=== PATIENT | female | born 1960 | race African-American/Black ===

== ENCOUNTER 2017-07-05 00:57 | Inpatient (IN) | payer OTHER ==
[~2017-07-05] VITALS: Ht 157.5 cm; Wt 97.2 kg
[2017-07-05] VITALS (20 sets, daily range): BP systolic 92–114; BP diastolic 55–73
[~2017-07-05 00:57] MED LIST: ASPIRIN CHEW81 MG PO; ASPIRIN81 M1 PO; CEFTRIAXON2 GM/50 ML IV; CLINDAGEL40 ML TOP; CRESTOR10 MG PO; FERROUS SULFAT325 MG PO; LIPITOR80 MG PO; MINOCYCLINE HC100 M1 PO; MINOCYCLINE TOP; MUPIROCIN22 GM TOP; NORCO 7.5-3251 EACH PO; PLAVIX75 MG PO; TRULICITY INJ; VANCOMYCIN1 GM/250 M IV; Z.0.GLIPIZIDE10 MG PO; Z.0.LIPITOR10 MG PO; Z.0.LISINOPRIL5 MG PO; Z.0.METFORMIN HCL100 PO; Z.0.TEMAZEPAM15 MG PO; Z.0.VICTOZA 3-0.6 MG SQ; Z.0.XANAX0.25 MG PO
[2017-07-05] MEDS ORDERED: ASPIRIN 81 MG CHEW TAB PO ONE ×2 (01:30→03:15)
[2017-07-05 02:05] LABS: BASOPHILS # (AUTO) 0.1 (0.0-0.1); BASOPHILS % 0.4 % (0.0-1.0); HEMATOCRIT 30.7 % (34.2-44.1); HEMOGLOBIN 9.1 g/dL (12.0-16.0); LYMPHOCYTES # (AUTO) 0.8 (1.0-3.2); LYMPHOCYTES % 6.2 % (18.0-39.1); MEAN CORPUSCULAR HEMOGLOBIN 21.6 pg (28-32); MEAN CORPUSCULAR HGB CONC 29.6 g/dL (31-35); MEAN CORPUSCULAR VOLUME 72.9 fL (81-99); MONOCYTES # (AUTO) 1.2 (0.2-0.8); MONOCYTES % 8.9 % (4.4-11.3); NEUTROPHILS # (AUTO) 11.2 (2.1-6.9); NEUTROPHILS % 83.9 % (38.7-80.0); PLATELET COUNT 402 x10e3/uL (140-360); RED BLOOD COUNT 4.21 x10e6/uL (3.6-5.1); RED CELL DISTRIBUTION WIDTH 17.2 % (11.7-14.4)
[2017-07-05 02:17] LABS: INR 1.16; PROTHROMBIN TIME 15.4 seconds (11.9-14.5)
--- NOTE | 2017-07-05 02:39 | Diagnostic Imaging Report ---
EXAMINATION: Head CT HISTORY: Weakness for several days, slurred speech for 2 days. Evaluate for stroke. COMPARISON: None. TECHNIQUE: Multidetector axial images were obtained without contrast from the foramen magnum to the vertex . The images were reconstructed using brain and bone algorithms. Thin section brain images were reformatted into coronal and sagittal planes. Intravenous contrast: None. Motion/streaking artifact limits the evaluation of the skull base and posterior cranial fossa. FINDINGS: Parenchyma: 1. Prominent hypodensity in the right ventral medulla (pyramidal tract), may represent an artifact versus an age indeterminate infarct. 2. Few scatter White matter hypodensities, most likely nonspecific chronic microvascular ischemic changes. 3. No mass or hemorrhage. No CT evidence of acute territorial vascular insult. Extra-axial spaces:No abnormal density. No extra-axial fluid collections Brain volume: Normal for age. Ventricles: No hydrocephalus or displacement. Arteries: No density suggestive of thrombus. Dural sinuses: No abnormal density. Extra-axial spaces: No abnormal density. Foramen magnum: No mass, Chiari malformation, or basilar invagination. Sella: No obvious mass. Paranasal/mastoid sinuses: Imaged portions unremarkable. Skull/Scalp: No lytic or blastic lesions. No fractures. IMPRESSION: 1. Questionable hypodensity in the right ventral medulla (pyramidal tract) may represent an artifact versus ischemic infarct. If clinical concern remains consider brain MRI for further evaluation. 2. No acute intracranial hemorrhage. 3. Mild chronic microvascular ischemic changes. Signed by: Dr. Radha Miller M.D. on 07/05/2017 2:35 AM
[2017-07-05 02:50] LABS: MAGNESIUM 1.2 MG/DL (1.3-2.1)
[2017-07-05 02:58] LABS: ALANINE AMINOTRANSFERASE 38 IU/L (0-55); ALBUMIN 2.2 g/dL (3.5-5.0); ALBUMIN/GLOBULIN RATIO 0.4 (0.8-2.0); ALKALINE PHOSPHATASE 76 IU/L (40-150); BLOOD UREA NITROGEN 9 mg/dL (7-26); BUN/CREATININE RATIO 15 (6-25); CALCIUM 9.4 mg/dL (8.4-10.2); CHLORIDE 103 mmol/L (98-107); CREATINE KINASE 107 IU/L (29-168); CREATININE, SERUM 0.61 mg/dL (0.57-1.11); EST GLOMERULAR FILTRATION RATE > 60 ML/MIN (60-); POTASSIUM 4.2 mmol/L (3.5-5.1); SODIUM 134 mmol/L (136-145)
--- NOTE | 2017-07-05 03:02 | Diagnostic Imaging Report ---
EXAM: CHEST SINGLE (PORTABLE), AP 1 view DATE: 07/05/2017 1:35 AM Time stamp on exam: 2248 hours INDICATION: Weakness, slurred speech COMPARISON: AP view of the chest July 07, 2016 FINDINGS: LINES/TUBES: None LUNGS: No consolidations or edema. PLEURA: No effusions or pneumothorax. HEART AND MEDIASTINUM: Normal size and contour. BONES AND SOFT TISSUES: No acute findings. IMPRESSION: No acute thoracic abnormality. Signed by: Dr. Shantel Streeter M.D. on 07/05/2017 2:58 AM
[2017-07-05] MEDS ORDERED: SODIUM CHLORIDE 0.9% 1000ML 1,000 ML IV STA (03:08)
[2017-07-05 03:17] LABS: GLUCOSE 46 mg/dL (74-118)
[2017-07-05] MEDS ORDERED: DEXTROSE 50% SYRINGE 50 ML IV ONE (03:22)
[2017-07-05] MEDS ORDERED: DEXTROSE 50% SYRINGE 50 ML IV STA (03:35)
[2017-07-05 03:40] LABS: ANION GAP 17.2 mmol/L (8-16); CARBON DIOXIDE 18 mmol/L (22-29); THYROID STIMULATING HORMONE 0.54 uIU/mL (0.350-4.940)
[2017-07-05] MEDS ORDERED: DEXTROSE 10% 1,000 ML IV SCH (03:45)
[2017-07-05] MEDS ORDERED: MAGNESIUM SULFATE 2GM/50ML 50 ML IV ONE (03:45)
[2017-07-05] MEDS: PIPER-TAZ 3.375 GM 50 ML IV SCH ×4 (04:37→17:47)
[2017-07-05 04:40] LABS: BILIRUBIN,URINE NEGATIVE (NEGATIVE); CLARITY,URINE CLEAR (CLEAR); COLOR,URINE YELLOW (YELLOW); KETONES,URINE NEGATIVE (NEGATIVE); LEUKOCYTE ESTERASE ,URINE NEGATIVE (NEGATIVE); NITRITE,URINE NEGATIVE (NEGATIVE); URINE UROBILINOGEN 0.2 mg/dL (0.2 - 1)
[2017-07-05 04:41] LABS: PROTEIN,URINE DIPSTICK 1+ (NEGATIVE)
[2017-07-05 05:11] LABS: AMORPHOUS SEDIMENT,URINE MODERATE (FEW); BACTERIA,URINE FEW /HPF; EPITHELIAL CELLS,URINE FEW /LPF; WBC,URINE (MAN) 0-5 /HPF (0-5)
[2017-07-05] MEDS: VANCOMYCIN 1GM/NS 250 ML 250 ML IV SCH ×3 (05:30→21:13)
[2017-07-05 05:46] LABS: ABG PH 7.45 (7.31-7.41)
[2017-07-05] MEDS ORDERED: DEXTROSE 50% SYRINGE 50 ML IV PRN (06:45)
[2017-07-05] MEDS ORDERED: ONDANSETRON HCL INJ 2 MG/ML VIAL IV PRN (06:45)
[2017-07-05] MEDS: ASPIRIN 325 MG TAB EC PO SCH (07:55)
[2017-07-05] MEDS ORDERED: ACETAMINOPHEN 325 MG TAB PO ONE (08:00)
[2017-07-05] MEDS: INSULIN REGULAR, HUMAN 100 UNIT/1 ML 3ML VIAL SQ SCH ×4 (08:25→20:54)
[2017-07-05] MEDS ORDERED: CYMBALTA20 MG PO (09:39)
[2017-07-05] MEDS ORDERED: HUMERA (09:39)
[2017-07-05] MEDS ORDERED: TYLENOL WITH C1 EAC1 PO (09:39)
[2017-07-05] MEDS ORDERED: PANTOPRAZOLE SO40 MG PO (09:39)
[2017-07-05 11:06] LABS: CREATINE KINASE MB 1.7 ng/mL (0.00-5.00)
--- NOTE | 2017-07-05 15:27 | Diagnostic Imaging Report ---
History: Syncope Comparison studies: None Technique: Sagittal T2; axial DWI, FLAIR, MPGR, T1, Coronal FLAIR. Intravenous contrast: None Findings: Scalp: Normal in signal . No masses . Bone marrow: Normal in signal intensity. Extra-axial: No masses or fluid collections. Brain sulci: Appropriate for age. Ventricles: Normal in size . No hydrocephalus . Parenchyma: A few punctate T2 FLAIR hyperintense foci in the supratentorial white matter at the vertex are nonspecific small vessel ischemic changes. No masses, hemorrhage, acute or chronic cortical ischemic insults. Suprasellar region: No abnormalities. Craniocervical junction: No abnormalities. Patent foramen magnum. No Chiari one malformation. Vessels: Normal flow-voids in the arteries and sinuses. IMPRESSION: 1. Minimal supratentorial white matter is normal ischemic changes. 2. Otherwise, no abnormalities. 3. Vague hypodensity in the right ventral medulla, described on the CT, was an artifact. Signed by: Dr. Bharat Zafar M.D. on 07/05/2017 3:23 PM
--- NOTE | 2017-07-05 15:32 | Diagnostic Imaging Report ---
History: Syncope Comparison studies: None Technique: Sagittal T1, T2 and IR, axial T2 and axial gradient echo Intravenous contrast: None Findings: Airway: Patent. Alignment: Normal lordosis. No scoliosis. Cervicomedullary junction: No abnormalities. Patent foramen magnum. Soft tissues: No T2 hyperintense inflammatory changes. Spinal cord: Normal in size and signal from the foramen magnum through T1. Vertebrae: Normal in height and signal intensity. No fractures, infection or neoplasm. Degenerative changes: C2-C3: No abnormalities. C3-C4: Mildly degenerated disc. Mild spinal canal stenosis due to a disc osteophyte complex. Mild left foraminal stenosis due to uncoarthrosis. Patent right foramen. No disc herniation. C4-C5: Mildly degenerated disc. Mild spinal canal stenosis due to disc osteophyte complex. Foraminal stenosis, moderate right, mild left is due to facet and uncovertebral arthrosis. No disc herniation. C5-C6: Mildly degenerated disc. Mild left foraminal stenosis due to uncovertebral arthrosis. Patent spinal canal and right foramen. No disc herniation. C6-C7: No abnormalities. C7-T1: No abnormalities. IMPRESSION: 1. Mildly degenerated discs from C3 to C6. 2. Mild spinal canal stenosis at C3-4 and to a lesser extent at C4-5 due to disc osteophyte complexes. 3. Foraminal stenosis, also from C3 to C6, is worse on the right at C4-5. 4. No disc herniations Signed by: Dr. Bharat Zafar M.D. on 07/05/2017 3:29 PM
[2017-07-05] MEDS ORDERED: ACETAMINOPHEN 325 MG TAB PO PRN (16:30)
[2017-07-05 17:58] LABS: CREATINE KINASE MB 1.5 ng/mL (0.00-5.00)
[2017-07-05] MEDS ORDERED: DIPHENHYDRAMINE HCL 25 MG CAP PO PRN (21:00)
[2017-07-06] VITALS (24 sets, daily range): BP systolic 90–132; BP diastolic 59–96
[2017-07-06] MEDS: PIPER-TAZ 3.375 GM 50 ML IV SCH ×4 (00:13→20:00)
[2017-07-06 06:18] LABS: BASOPHILS # (AUTO) 0.1 (0.0-0.1); BASOPHILS % 0.6 % (0.0-1.0); EOSINOPHILS % 0.2 % (0.0-6.0); HEMATOCRIT 25.3 % (34.2-44.1); LYMPHOCYTES # (AUTO) 1.1 (1.0-3.2); LYMPHOCYTES % 13.3 % (18.0-39.1); MEAN CORPUSCULAR HEMOGLOBIN 21.8 pg (28-32); MEAN CORPUSCULAR HGB CONC 30.4 g/dL (31-35); MEAN CORPUSCULAR VOLUME 71.7 fL (81-99); MONOCYTES # (AUTO) 1.1 (0.2-0.8); MONOCYTES % 13.2 % (4.4-11.3); PLATELET COUNT 389 x10e3/uL (140-360); RED BLOOD COUNT 3.53 x10e6/uL (3.6-5.1)
[2017-07-06 06:22] LABS: HEMOGLOBIN 7.7 g/dL (12.0-16.0)
[2017-07-06 06:32] LABS: ALANINE AMINOTRANSFERASE 38 IU/L (0-55); ALBUMIN 1.9 g/dL (3.5-5.0); ALBUMIN/GLOBULIN RATIO 0.4 (0.8-2.0); ALKALINE PHOSPHATASE 66 IU/L (40-150); ANION GAP 14.1 mmol/L (8-16); BLOOD UREA NITROGEN 7 mg/dL (7-26); BUN/CREATININE RATIO 11 (6-25); CALCIUM 8.9 mg/dL (8.4-10.2); CARBON DIOXIDE 19 mmol/L (22-29); CHLORIDE 107 mmol/L (98-107); CREATININE, SERUM 0.65 mg/dL (0.57-1.11); EST GLOMERULAR FILTRATION RATE > 60 ML/MIN (60-); GLUCOSE 194 mg/dL (74-118); MAGNESIUM 1.3 MG/DL (1.3-2.1); POTASSIUM 4.1 mmol/L (3.5-5.1); SODIUM 136 mmol/L (136-145)
[2017-07-06] MEDS: INSULIN REGULAR, HUMAN 100 UNIT/1 ML 3ML VIAL SQ SCH ×4 (07:30→21:45)
[2017-07-06] MEDS: VANCOMYCIN 1GM/NS 250 ML 250 ML IV SCH ×2 (09:02→21:44)
[2017-07-06] MEDS: ASPIRIN 325 MG TAB EC PO SCH (09:03)
[2017-07-06 09:20] LABS: HEMATOCRIT 26.8 % (34.2-44.1); HEMOGLOBIN 8.2 g/dL (12.0-16.0)
[2017-07-06 09:43] LABS: FERRITIN 6501.57 ng/mL (4.63-204.00)
[2017-07-06] MEDS: GLIPIZIDE 5 MG TAB PO SCH (12:04)
[2017-07-06] MEDS: LISINOPRIL 20 MG TAB PO SCH (12:04)
[2017-07-06] MEDS: CLOPIDOGREL BISULFATE 75 MG TAB PO SCH (12:05)
--- NOTE | 2017-07-06 12:54 | Diagnostic Imaging Report ---
PROCEDURE: A single AP view of the chest. COMPARISON: 07/05/2017 INDICATIONS: PICC LINE PLACEMENT FINDINGS: Lines/tubes: Right upper extremity PICC line has its tip in the low SVC. Lungs: The lungs are well inflated and clear. There is no evidence of pneumonia or pulmonary edema. Pleura: There is no pleural effusion or pneumothorax. Heart and mediastinum: The heart and the mediastinum are unremarkable. Bones: No acute bony abnormality. Surgical clips in the bilateral axillary soft tissues. IMPRESSION: Right upper extremity PICC line has its tip in the low SVC. Dictated by: Alhaji Nava M.D. on 07/06/2017 at 13:02 Electronically approved by: Alhaji Nava M.D. on 07/06/2017 at 13:02
--- NOTE | 2017-07-06 13:36 | Consultation ---
DATE OF CONSULTATION: July 05, 2017 REASON FOR CONSULTATION: Fever. HISTORY OF PRESENT ILLNESS: This is a 57-year-old female who has history of obesity, anemia, diabetes, and hidradenitis. The patient apparently was referred to dermatology [facility] and she was started recently a month ago on Humira. The patient has also been on minocycline, aspirin, metformin, glipizide, lisinopril, Plavix, and Lipitor. She has been on clindamycin gel. She has been on mupirocin gel. She has been on tetracycline. She is coming here because she passed out. She was not feeling well at all. When she first came here, patient was evaluated in the emergency room. She was admitted to the intensive care unit. When I saw her, she started to feel better, has no other complaints. At the present time, the patient has underlying history of obesity, diabetes mellitus, hypertension, history of stroke before, hidradenitis suppurativa, and started on Humira about 4 weeks ago. PAST MEDICAL HISTORY: Cholecystectomy, hysterectomy. ALLERGIES: NKA. SOCIAL HISTORY: There is no smoking, drug abuse, alcohol use. FAMILY HISTORY: Hypertension. REVIEW OF SYSTEMS: HEENT: When I saw her, there is no headache, visual changes, or hearing changes. GI: There is no nausea, no vomiting, no diarrhea. CARDIAC: There is no arrhythmia. NEUROLOGIC: No seizure activity. SKIN: There is no rash. When she first came, the patient was having weakness, paresthesia, not feeling well, and impaired speech, came to the emergency room where she was evaluated. Neurology was consulted. Infectious disease was consulted to make recommendation with regards to antibiotic. The patient still admits that she does have still draining lesions coming in her thigh. LABORATORY DATA: Reviewed. Her white count on admission 13.3, hemoglobin of 9. Her sodium 136, potassium 4.1, creatinine of 0.65. Her blood cultures and urine cultures still pending. PHYSICAL EXAMINATION: GENERAL: She is currently alert, oriented, does not seem to be in acute distress. VITAL SIGNS: She has been running fever of 101.3. HEENT: She is not icteric. NECK: Supple. CHEST: Clear bilateral. COR: No murmurs. ABDOMEN: Soft. IMPRESSION: Fever, concern about infection, sepsis. Patient has been on immunosuppressive, Humira. She does have a couple of drainage spots from her skin. Agree with vancomycin. Agree with Zosyn. Await blood cultures. Recheck CBC, recheck chem panel. We will follow with you. Job#: [id number] VAS
[2017-07-06] MEDS: ACETAMINOPHEN/CODEINE 300MG - 30MG TAB PO PRN (15:16)
--- NOTE | 2017-07-06 15:16 | History and Physical ---
DATE OF : 1960 REASON FOR ADMISSION: This is a 57-year-old female with weakness. HISTORY OF PRESENTING ILLNESS: This is Ms. iBbi Lee with a history of CVA in the past, was in usual state of health until about a day prior to [place]. The patient started to have some weakness in lower extremities described as generalized and upper extremity on the left side. Patient was slurring her speech and the weakness was profound. Thus, the patient came into the emergency room and was admitted in the ICU for possible TIA versus CVA. PAST MEDICAL HISTORY: History of hypertension, history of stroke, history of depression, history of hidradenitis suppurativa, history of diabetes mellitus, and history of reflux esophagitis. MEDICATIONS: She takes at home are: 1. Acetaminophen with codeine q.6 hours. 2. Aspirin 81 mg. 3. Plavix 75 mg. 4. Atorvastatin 80 mg. 5. Duloxetine 20 mg. 6. Glipizide 10 mg twice a day. 7. Lisinopril 5 mg twice a day. 8. Pantoprazole 40 mg twice a day. 9. Trulicity once a week. 10. Humira once a week too. SOCIAL HISTORY: No ETOH. No IV drug abuse. History of smoking in the past, currently nonsmoker. REVIEW OF SYSTEMS: Negative for chest pain. Negative for shortness of breath. No nausea, vomiting, or diarrhea. No constipation. No rectal bleeding. No hematochezia. No hematemesis either. SURGICAL HISTORY: History of right hip replacement and also history of finger surgeries and need for incision and drainage. Patient also has multiple incision and drainage for hidradenitis suppurativa also. PHYSICAL EXAMINATION: GENERAL: Patient is alert and oriented x3, in no acute distress at this time, obese. HEENT: Normocephalic, atraumatic. Pupils are reactive to light and accommodation. CVS: S1 and S2, normal regular rhythm. ABDOMEN: Nontender, nondistended. EXTREMITIES: No clubbing, no cyanosis, no edema. NEUROLOGIC: All muscle groups with good strength 5/5; hyperreflexic slightly on the right lower and right upper extremities, otherwise normal. LABORATORY VALUES: Initial white count was 13.3, hemoglobin was 9.1, hematocrit of 30.7, neutrophil was 11.2, repeat hemoglobin of 7.7 and 8.2. Chemistries; sodium 136, potassium was 4.1, BUN was 14.7, creatinine was 0.65. Iron panel was done. Iron was 14, TIBC 116, percent saturation was 12, ferritin was elevated at 6501. ALT was 43, albumin was 1.9, globulin was 5.1, ratio of 0.4. Serology influenza was negative with the patient also did report fever when she came in. ASSESSMENT: Weakness. MRI brain was negative for any stroke. Cervical MRI did show C5-C6 diskopathy, foraminal stenosis with DJD. Chest x-ray showed no acute thoracic abnormalities. Brain CT showed some artifact, which was cleared by MRI. Plan is to keep the patient in for the fever. The patient's influenza has been negative. She has been started on antibiotics, has been started on vancomycin and Zosyn. I will continue the same. We will restart her on home medications. Further recommendations on clinical course. A PICC line also has been started for fever. We will stop the Zosyn and vancomycin. Possible reason for the fever could be the hidradenitis suppurativa. Neurology is on-call for consult, they have not seen, but Dr. Mejia will be assessing her shortly. We will keep her in the ICU today. Job#: [id number] CAROLINE
[2017-07-06] MEDS: CLOTRIMAZOLE/BETAMETHASONE 45 GM CR TP SCH (20:00)
[2017-07-06] MEDS: DULOXETINE HCL 20 MG DELAYED RELEASE PO SCH (21:44)
[2017-07-07] VITALS (22 sets, daily range): BP systolic 86–137; BP diastolic 51–98
[2017-07-07] MEDS: PIPER-TAZ 3.375 GM 50 ML IV SCH ×4 (00:45→16:29)
[2017-07-07 06:03] LABS: BASOPHILS % 0.5 % (0.0-1.0); EOSINOPHILS # (AUTO) 0.1 (0.0-0.4); EOSINOPHILS % 1.2 % (0.0-6.0); HEMATOCRIT 23.8 % (34.2-44.1); LYMPHOCYTES # (AUTO) 1.4 (1.0-3.2); LYMPHOCYTES % 21.7 % (18.0-39.1); MEAN CORPUSCULAR HEMOGLOBIN 21.6 pg (28-32); MEAN CORPUSCULAR HGB CONC 30.3 g/dL (31-35); MEAN CORPUSCULAR VOLUME 71.5 fL (81-99); MONOCYTES # (AUTO) 0.9 (0.2-0.8); MONOCYTES % 13.3 % (4.4-11.3); NEUTROPHILS % 62.2 % (38.7-80.0); PLATELET COUNT 398 x10e3/uL (140-360); RED BLOOD COUNT 3.33 x10e6/uL (3.6-5.1); RED CELL DISTRIBUTION WIDTH 17.2 % (11.7-14.4)
[2017-07-07 06:37] LABS: HEMOGLOBIN 7.2 g/dL (12.0-16.0)
[2017-07-07] MEDS ORDERED: FUROSEMIDE INJ 10 MG/ML 2 ML VIAL IV ONE (07:00)
[2017-07-07] MEDS ORDERED: SODIUM CHLORIDE 0.9% 250ML 250 ML IV ONE (07:00)
--- NOTE | 2017-07-07 07:18 | Diagnostic Imaging Report ---
PROCEDURE:CHEST SINGLE (PORTABLE) TECHNIQUE:Portable AP chest INDICATION:Cough COMPARISON:Patients [facility], DX, CHEST XRAY LINE PLACEMENT, 07/06/2017, 10:23. FINDINGS: Right PICC terminating in the upper SVC. Trace bibasilar airspace opacities. Lungs are otherwise clear. No pleural effusions. Cardiac size and mediastinal contour are normal for technique. Intact skeleton. CONCLUSION: Bibasilar subsegmental atelectasis. Otherwise, no acute abnormality or interval change from July 06. Dictated by: Jose Francisco Brown M.D. on 07/07/2017 at 7:26 Electronically approved by: Jose Francisco Brown M.D. on 07/07/2017 at 7:26
[2017-07-07] MEDS: INSULIN REGULAR, HUMAN 100 UNIT/1 ML 3ML VIAL SQ SCH ×4 (07:30→21:00)
[2017-07-07] MEDS ORDERED: PANTOPRAZOLE SOD 40 MG TABEC PO SCH (07:30)
[2017-07-07] MEDS: PANTOPRAZOLE SOD 40 MG TABEC PO SCH (08:06)
[2017-07-07] MEDS: GLIPIZIDE 5 MG TAB PO SCH ×2 (08:06→16:45)
[2017-07-07] MEDS: CLOTRIMAZOLE/BETAMETHASONE 45 GM CR TP SCH ×2 (08:07→16:45)
[2017-07-07] MEDS: VANCOMYCIN 1GM/NS 250 ML 250 ML IV SCH ×2 (08:07→21:51)
[2017-07-07] MEDS: LISINOPRIL 20 MG TAB PO SCH ×2 (08:07→16:45)
[2017-07-07] MEDS: ASPIRIN 81 MG CHEW TAB PO SCH (08:07)
[2017-07-07] MEDS: IRON SUCROSE 200 MG in SODIUM CHLORIDE 0.9% 100 ML 100 ML IV SCH (09:39)
[2017-07-07] MEDS ORDERED: SODIUM CHLORIDE 0.9% 250ML 250 ML ONE ×2 (10:45→17:57)
[2017-07-07] MEDS ORDERED: FUROSEMIDE INJ 10 MG/ML 4 ML VIAL ONE (14:13)
[2017-07-07] MEDS: ACETAMINOPHEN/CODEINE 300MG - 30MG TAB PO PRN (14:27)
[2017-07-07] MEDS ORDERED: SODIUM CHLORIDE 0.9% 50ML 50 ML ONE (16:22)
[2017-07-07] MEDS: DULOXETINE HCL 20 MG DELAYED RELEASE PO SCH (21:51)
[2017-07-07] MEDS: ATORVASTATIN 40 MG TAB PO SCH (21:51)
[2017-07-08] VITALS: BP 110/72
[2017-07-08] MEDS: PIPER-TAZ 3.375 GM 50 ML IV SCH ×2 (01:53→06:18)
[2017-07-08 04:00] VITALS: BP 113/69
[2017-07-08] MEDS: INSULIN REGULAR, HUMAN 100 UNIT/1 ML 3ML VIAL SQ SCH ×4 (07:30→21:58)
[2017-07-08 07:37] LABS: BASOPHILS # (AUTO) 0.1 (0.0-0.1); BASOPHILS % 0.7 % (0.0-1.0); EOSINOPHILS # (AUTO) 0.1 (0.0-0.4); HEMATOCRIT 28.3 % (34.2-44.1); LYMPHOCYTES # (AUTO) 1.7 (1.0-3.2); MEAN CORPUSCULAR HEMOGLOBIN 23.2 pg (28-32); MEAN CORPUSCULAR HGB CONC 31.8 g/dL (31-35); MEAN CORPUSCULAR VOLUME 72.9 fL (81-99); MONOCYTES # (AUTO) 0.8 (0.2-0.8); MONOCYTES % 11.5 % (4.4-11.3); NEUTROPHILS # (AUTO) 4.3 (2.1-6.9); NEUTROPHILS % 60.7 % (38.7-80.0); PLATELET COUNT 400 x10e3/uL (140-360); RED BLOOD COUNT 3.88 x10e6/uL (3.6-5.1); RED CELL DISTRIBUTION WIDTH 17.4 % (11.7-14.4)
[2017-07-08 07:59] LABS: ANION GAP 16.9 mmol/L (8-16); BLOOD UREA NITROGEN 5 mg/dL (7-26); BUN/CREATININE RATIO 9 (6-25); CALCIUM 8.2 mg/dL (8.4-10.2); CARBON DIOXIDE 22 mmol/L (22-29); CHLORIDE 110 mmol/L (98-107); CREATININE, SERUM 0.55 mg/dL (0.57-1.11); EST GLOMERULAR FILTRATION RATE > 60 ML/MIN (60-); GLUCOSE 88 mg/dL (74-118); POTASSIUM 3.9 mmol/L (3.5-5.1); SODIUM 145 mmol/L (136-145)
[2017-07-08 08:27] VITALS: BP 141/92
[2017-07-08] MEDS: GLIPIZIDE 5 MG TAB PO SCH ×2 (08:30→17:50)
[2017-07-08] MEDS: PANTOPRAZOLE SOD 40 MG TABEC PO SCH (08:30)
[2017-07-08] MEDS: CLOTRIMAZOLE/BETAMETHASONE 45 GM CR TP SCH ×2 (09:00→17:00)
[2017-07-08] MEDS: LISINOPRIL 20 MG TAB PO SCH ×2 (09:33→17:50)
[2017-07-08] MEDS: VANCOMYCIN 1GM/NS 250 ML 250 ML IV SCH ×2 (09:33→21:49)
[2017-07-08] MEDS: ASPIRIN 81 MG CHEW TAB PO SCH (09:33)
[2017-07-08] MEDS: CLOPIDOGREL BISULFATE 75 MG TAB PO SCH (09:33)
[2017-07-08] MEDS: IRON SUCROSE 200 MG in SODIUM CHLORIDE 0.9% 100 ML 100 ML IV SCH (10:45)
[2017-07-08] MEDS ORDERED: PIPERACILLIN/TAZOBAC 3.375 GM in SODIUM CHLORIDE 0.9% 100 ML 100 ML IV SCH (15:00)
[2017-07-08] MEDS: ACETAMINOPHEN/CODEINE 300MG - 30MG TAB PO PRN (17:05)
[2017-07-08] MEDS ORDERED: SODIUM CHLORIDE 0.9% 250ML 250 ML ONE (17:07)
[2017-07-08] MEDS: PIPERACILLIN/TAZOBAC 3.375 GM in SODIUM CHLORIDE 0.9% 100 ML 100 ML IV SCH (18:00)
--- NOTE | 2017-07-08 18:13 | Consultation ---
DATE OF CONSULTATION: July 06, 2017 NEUROLOGICAL CONSULTATION AGE: 57 DATE OF : [address] Jose Francisco Allen. TIME: 5:00 p.m. in the intensive care unit. HISTORY: This is a 57-year-old female on Wednesday the , while lying down, she woke up and could not move, but only able to move her legs, completely unable to move. There was no headaches or dizziness. Later on, she was able to get up and walk with some difficulty. The following day, Wednesday, she felt a little better and was able to ambulate with some difficulty also. Still no headaches, no dizziness, no speech or swallowing difficulty. On Wednesday, she was feeling a little better, later on, in the evening, she was unable to express herself. She was brought to the emergency room and there was probable diagnosis of stroke. They did a CAT scan of the brain, which showed some possibility of mild stroke in the upper medulla in the right side. The patient, in 2011, was hospitalized here at [facility] with apparent stroke. I evaluated her at that time. Apparently, according to the MRI, she has some small stroke in the left ventral upper medulla, which was small. At the time of this examination, the patient doing well. No trouble with speech, no trouble within the upper and lower extremities. PAST HISTORY: Hypertension, diabetes mellitus, mild stroke in 2011. She has eyes because she has been taking Humira. She has history of hyperlipidemia, obesity. SURGERY: Gallbladder surgery on . LIST OF MEDICATIONS: Reviewed in detail. SOCIAL HISTORY: No alcohol. In the past was a smoker, but not now. ALLERGIES: NONE KNOWN. REVIEW OF SYSTEMS: All 12 steps negative except what is described above. PHYSICAL EXAMINATION VITAL SIGNS: Blood pressure today on the was 115/71. Pulse 84. Afebrile. LUNGS: Clear to auscultation. HEART: Regular sinus rhythm. No murmur. ABDOMEN: Soft, nontender. No organomegaly. LOWER EXTREMITIES: No edema, no cyanosis, no clubbing. NEURO: At the time of examination reveals no major complaint. No headache, no dizziness, no speech or swallowing difficulty, focal paresthesia, focal weakness. MENTAL STATUS: She is alert times 3. Speech clear. No dysarthria or dysphagia. CRANIAL NERVES: Pupils are both equal and reactive. External ocular movements were full. Visual field was normal. No facial weakness. Tongue protrudes midline. Palate moves normal. MOTOR: Power upper and lower extremities able to elevate against gravity without any difficulty. There was no evidence of gross weakness in the proximal and distal muscle in both upper extremities and neither the lower extremities. Plantar stimulation withdrawal bilaterally. DEEP TENDON REFLEXES: Triceps, biceps, radials 1+, knee jerks 2+ on the right, 2+ on the left. SENSORY: Touch and pinprick okay on both upper and lower extremities. COORDINATION: [id number] is normal. GAIT: Normal. ROMBERG TEST: Negative. IMPRESSIONS 1. Patient with aphasia, reversed, unspecified. 2. Weakness of both lower extremities, resolved, unspecified. 3. Fair anemia. 4. Hypertension. 5. Diabetes mellitus, type 2. 6. I reviewed report of the magnetic resonance imaging of the brain that was negative for any acute stroke. RECOMMENDATION: Discussed with the attending physician for her anemia. At the present time, I see no evidence of any acute stroke. She has to have expressive aphasia, which resolved and the significant weakness of both lower extremities that resolved spontaneously and at the present time, no neurological deficit. Will follow closely. Job#: [id number] CQ
[2017-07-08 20:00] VITALS: BP 138/73
[2017-07-08] MEDS: DULOXETINE HCL 20 MG DELAYED RELEASE PO SCH (21:49)
[2017-07-08] MEDS: ATORVASTATIN 40 MG TAB PO SCH (21:49)
[2017-07-09] VITALS: BP 125/60
[2017-07-09] MEDS: PIPERACILLIN/TAZOBAC 3.375 GM in SODIUM CHLORIDE 0.9% 100 ML 100 ML IV SCH ×4 (00:23→17:00)
[2017-07-09 04:00] VITALS: BP 130/66
[2017-07-09] MEDS: INSULIN REGULAR, HUMAN 100 UNIT/1 ML 3ML VIAL SQ SCH ×4 (07:30→22:35)
[2017-07-09 08:01] VITALS: BP 145/93
[2017-07-09] MEDS: CLOTRIMAZOLE/BETAMETHASONE 45 GM CR TP SCH ×2 (09:00→17:00)
[2017-07-09] MEDS: LISINOPRIL 20 MG TAB PO SCH ×2 (09:03→17:00)
[2017-07-09] MEDS: GLIPIZIDE 5 MG TAB PO SCH ×2 (09:03→17:00)
[2017-07-09] MEDS: CLOPIDOGREL BISULFATE 75 MG TAB PO SCH (09:03)
[2017-07-09] MEDS: ASPIRIN 81 MG CHEW TAB PO SCH (09:03)
[2017-07-09] MEDS: VANCOMYCIN 1GM/NS 250 ML 250 ML IV SCH ×2 (09:03→22:35)
[2017-07-09] MEDS: PANTOPRAZOLE SOD 40 MG TABEC PO SCH (09:03)
[2017-07-09] MEDS: IRON SUCROSE 200 MG in SODIUM CHLORIDE 0.9% 100 ML 100 ML IV SCH (10:51)
[2017-07-09 11:51] VITALS: BP 121/84
[2017-07-09 16:17] VITALS: BP 160/87
[2017-07-09] MEDS: ACETAMINOPHEN/CODEINE 300MG - 30MG TAB PO PRN (17:06)
[2017-07-09 21:52] VITALS: BP 107/60
[2017-07-09] MEDS: DULOXETINE HCL 20 MG DELAYED RELEASE PO SCH (22:34)
[2017-07-09] MEDS: ATORVASTATIN 40 MG TAB PO SCH (22:34)
[2017-07-10] MEDS: PIPERACILLIN/TAZOBAC 3.375 GM in SODIUM CHLORIDE 0.9% 100 ML 100 ML IV SCH ×4 (00:42→17:16)
[2017-07-10 01:28] VITALS: BP 135/65
[2017-07-10 06:30] VITALS: BP 147/80
[2017-07-10] MEDS: INSULIN REGULAR, HUMAN 100 UNIT/1 ML 3ML VIAL SQ SCH ×3 (07:30→16:30)
[2017-07-10 07:55] VITALS: BP 149/88
[2017-07-10] MEDS: GLIPIZIDE 5 MG TAB PO SCH ×2 (08:41→15:53)
[2017-07-10] MEDS: ASPIRIN 81 MG CHEW TAB PO SCH (08:41)
[2017-07-10] MEDS: CLOPIDOGREL BISULFATE 75 MG TAB PO SCH (08:41)
[2017-07-10] MEDS: PANTOPRAZOLE SOD 40 MG TABEC PO SCH (08:41)
[2017-07-10] MEDS: LISINOPRIL 20 MG TAB PO SCH ×2 (08:41→15:53)
[2017-07-10] MEDS: CLOTRIMAZOLE/BETAMETHASONE 45 GM CR TP SCH ×2 (09:00→17:00)
[2017-07-10] MEDS: VANCOMYCIN 1GM/NS 250 ML 250 ML IV SCH (10:16)
[2017-07-10 11:44] VITALS: BP 176/92
[2017-07-10] MEDS: IRON SUCROSE 200 MG in SODIUM CHLORIDE 0.9% 100 ML 100 ML IV SCH (12:10)
[2017-07-10] MEDS ORDERED: CLONIDINE HCL 0.1 MG TAB PO ONE (13:00)
[2017-07-10] MEDS: ACETAMINOPHEN/CODEINE 300MG - 30MG TAB PO PRN (14:30)
[2017-07-10 15:30] VITALS: BP 180/84
[2017-07-10 15:54] VITALS: BP 168/90
--- NOTE | 2017-08-21 17:14 | Consultation ---
DATE OF CONSULTATION: July 08, 2017 CONSULTATION TO: Dr. Isabel Welch. Bibi Lee is a 57-year-old female referred to [facility] for evaluation of anemia. HISTORY OF PAST ILLNESS 1. History of diabetes mellitus. 2. History of coronary artery disease. 3. History of hyperlipidemia. 4. History of major depression. SOCIAL HISTORY: Noncontributory. FAMILY HISTORY: Noncontributory. ALLERGIES: REPORTED LEVAQUIN. MEDICATIONS AT THIS TIME 1. Vancomycin. 2. Iron infusion. 3. Zosyn. 4. Ondansetron. 5. Insulin. 6. Diphenhydramine. 7. Aspirin. 8. Atorvastatin. 9. Lisinopril. 10. Glipizide. 11. Plavix. 12. Duloxetine. 13. Clotrimazole. 14. Protonix. 15. Tylenol with Codeine. REVIEW OF SYSTEMS HEENT: Normal. CARDIAC: Hypertension and hyperlipidemia. RESPIRATORY: Normal. GI: History of iron deficiency anemia. : Normal. MUSCULOSKELETAL: Normal. SKIN AND BREASTS: Normal. NEUROENDOCRINE: History of diabetes mellitus. PHYSICAL EXAMINATION GENERAL: Moderately built female. No palpable adenopathy. HEART: Within normal limits. LUNGS: Clear. BREASTS: Exam deferred at her request. ABDOMEN: Soft. There is no hepatosplenomegaly. RECTAL AND VAGINAL: Examination deferred at her request. CENTRAL NERVOUS SYSTEM: At the present time essentially normal. However, as per the records, the patient has had a TIA. LABS: Hemoglobin of 7.2, hematocrit 23.8, white count 6400, platelets 398,000. BUN 7, creatinine 0.6, sodium 136, potassium 4.1, chloride 77, CO2 19. INR reported at 1.16. Bilirubin 0.2, SGOT 43, SGPT 38, alkaline phosphatase 66. The patient was given INFeD by Dr. Hoyos who was fabrication technician for [facility]. IMPRESSION 1. Iron deficiency anemia. 2. Secondary thrombocythemia. 3. History of transient ischemic attack. 4. Hypoglycemia (46 on 07/05/2017). 5. Hypoalbuminemia (1.9 on 07/06/2017). 6. 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 7. High ferritin level 6501.5 possibly because of Venofer. 8. Blood cultures positive for Staphylococcus coagulase negative. 9. History of hyperlipidemia. 10. History of peripheral arterial disease. 11. Diabetes mellitus. 12. Hypertension. 13. History of hidradenitis. PLAN, COMMENTS AND SUGGESTIONS: I suggest the patient to have a bone marrow eventually, quantitative immunoglobulins, CAT scan of the abdomen and pelvis as she continues to have iron deficiency anemia. This possibly is because of multiple episodes of hidradenitis, which she has. Thank you very much for allowing me to participate in the management of this patient. Job#: [id number] cc:ISABEL WELCH MD
--- NOTE | 2017-08-23 20:21 | Discharge Summary ---
This patient came into the hospital for weakness. The patient has a history of CVA and consult with Dr. Maxx Mejia was done. The patient's MRI was also done and MRI was negative for any strokes. Also, MRI of the C-spine was done which showed C5, C6 discopathy, foraminal stenosis with DJD. Chest x-ray showed no acute thoracic abnormalities and brain CT showed some artifact which was cleared per MRI. The patient also had high fever. Influenza was negative. This patient because of the history of hidradenitis, the patient was started on vancomycin and Zosyn, and consult with Dr. Grimes was also done. The patient also had iron deficiency anemia. The patient has been treated by Dr. Espinoza. Consult was done. The patient was started on iron infusions while in the hospital, and possible CAT scan of the abdomen and pelvis needed to be ordered if she continued with iron deficiency anemia. The patient was given Infed for iron deficiency anemia, and continued with vancomycin as per Dr. Grimes. Dr. Mejia had cleared the patient for any strokes, but the patient's aphasia could not be explained. The patient continued to have expressive aphasia for a couple of hours, and it did resolve spontaneously. Once the patient was feeling better, physical therapy was started and the patient was feeling better, and the patient was discharged home. FINAL DIAGNOSES 1. History of cerebrovascular accident. 2. History of aphasia, weakness. 3. Anemia of iron deficiency. 4. Type 2 diabetes mellitus. 5. History of fever with no clear etiology on vancomycin and Zosyn. 6. Hidradenitis suppurativa. The patient was discharged home in stable condition. He was asked to follow up with me in 1 week's time, and also strict ER warnings were given to the patient. The patient is also asked to follow up with Dr. Espinoza for iron infusion at a later date. Also, stressed about the importance of getting a CT scan if needed. ISABEL WELCH MD Job#: [id number]
== END 2017-07-10 17:53 | disposition home or self-care (01) | DRG 864 ==
LOC: ER 00:57 → ERHOLD 07:00 → ICU 10:37 → MED/SURG3 07-07 15:44
PROVIDERS: ADMIT Family Medicine; ATTEND Family Medicine
PROC: 3E0 Administration, Physiological Systems and Anatomical Regions, Introduction (ICD-10-PCS; principal; 2017-07-05)
PROC: 02HV33Z Insertion of Infusion Device into Superior Vena Cava, Percutaneous Approach (ICD-10-PCS; 2017-07-06)
PROC: 30240N1 Transfusion of Nonautologous Red Blood Cells into Central Vein, Open Approach (ICD-10-PCS; 2017-07-07)
DX: R50.9 Fever, unspecified (principal); D84.9 Immunodeficiency, unspecified; D69.59 Other secondary thrombocytopenia; E11.649 Type 2 diabetes mellitus with hypoglycemia without coma; E83.42 Hypomagnesemia; E66.01 Morbid (severe) obesity due to excess calories; Z68.41 Body mass index [BMI] 40.0-44.9, adult; M48.02 Spinal stenosis, cervical region; L73.2 Hidradenitis suppurativa; I10 Essential (primary) hypertension; D50.9 Iron deficiency anemia, unspecified; Z86.73 Personal history of transient ischemic attack (TIA), and cerebral infarction without residual deficits; Z79.4 Long term (current) use of insulin; R20.0 Anesthesia of skin
CPT/HCPCS: 36415; 36430; 36569; 36600; 70450; 70551; 71010; 72141; 80048; 80053; 80202; 81001; 82140; 82550; 82553; 82728; 82784; 82805; 82948; 83540; 83605; 83735; 84443; 84466; 84484; 85014; 85018; 85025; 85610; 85730; 86850; 86900; 86920; 87040; 87071; 87086; 87186; 87205; 87400; 93005; 93306; 96360; 99284; J1756; J1940; J2543; J3370; J7030; J7050; J7799; P9016

== ENCOUNTER 2021-08-10 11:33 | Emergency (ER) | payer MEDICARE, OTHER ==
[~2021-08-10] VITALS: Ht 157.5 cm; Wt 90.7 kg
[~2021-08-10 11:33] MED LIST changes: +CYMBALTA20 MG PO; +HUMERA; +PANTOPRAZOLE SO40 MG PO; +TYLENOL WITH C1 EAC1 PO
[2021-08-10] MEDS ORDERED: ONDANSETRON HCL INJ 2MG/ML 2ML 2 MG/ML VIAL IV STA (12:17)
[2021-08-10] MEDS ORDERED: Morphine 4mg Syringe 4 MG/ML INJ IV STA (12:17)
[2021-08-10] MEDS ORDERED: SODIUM CHLORIDE 0.9% 1000ML 1,000 ML IV STA (12:17)
[2021-08-10 12:52] LABS: BASOPHILS # (AUTO) 0.1 (0.0-0.1); BASOPHILS % 0.6 % (0.0-1.0); EOSINOPHILS # (AUTO) 0.2 (0.0-0.4); HEMATOCRIT 31.2 % (34.2-44.1); HEMOGLOBIN 8.8 g/dL (12.0-16.0); LYMPHOCYTES # (AUTO) 2.6 (1.0-3.2); LYMPHOCYTES % 22.5 % (18.0-39.1); MEAN CORPUSCULAR HEMOGLOBIN 24.3 pg (28-32); MEAN CORPUSCULAR HGB CONC 28.2 g/dL (31-35); MEAN CORPUSCULAR VOLUME 86.2 fL (81-99); MONOCYTES # (AUTO) 0.7 (0.2-0.8); MONOCYTES % 5.8 % (4.4-11.3); NEUTROPHILS % 68.4 % (38.7-80.0); PLATELET COUNT 505 x10e3/uL (140-360); RED BLOOD COUNT 3.62 x10e6/uL (3.6-5.1); RED CELL DISTRIBUTION WIDTH 13.7 % (11.7-14.4)
[2021-08-10 13:22] LABS: ALBUMIN 2.8 g/dL (3.5-5.0); ALBUMIN/GLOBULIN RATIO 0.4 (0.8-2.0); ANION GAP 14.5 mmol/L (8-16); CALCIUM 9.7 mg/dL (8.4-10.2); CREATININE, SERUM 0.85 mg/dL (0.57-1.11); MAGNESIUM 1.5 MG/DL (1.3-2.1); POTASSIUM 4.5 mmol/L (3.5-5.1)
[2021-08-10 13:35] LABS: ERYTHROCYTE SEDIMENTATION RATE 107 mm/hr (0-20)
[2021-08-10] MEDS ORDERED: SODIUM CHLORIDE 0.9% 50ML 50 ML ONE (14:03)
[2021-08-10] MEDS ORDERED: IOPAMIDOL 370 MG/ML 200 ML INFUS..BTL INJ ONE (14:03)
[2021-08-10 14:33] LABS: CLARITY,URINE CLEAR (CLEAR); COLOR,URINE YELLOW (YELLOW); KETONES,URINE NEGATIVE (NEGATIVE); LEUKOCYTE ESTERASE ,URINE NEGATIVE (NEGATIVE); NITRITE,URINE NEGATIVE (NEGATIVE); PROTEIN,URINE DIPSTICK NEGATIVE (NEGATIVE); URINE UROBILINOGEN 0.2 mg/dL (0.2 - 1)
[2021-08-10 14:41] LABS: BACTERIA,URINE FEW /HPF; EPITHELIAL CELLS,URINE MODERATE /LPF; RBC,URINE 0-5 /HPF (0-5); WBC,URINE (MAN) 0-5 /HPF (0-5)
== END 2021-08-10 16:45 | disposition home or self-care (01) ==
LOC: ER 12:12
DX: M25.551 Pain in right hip (principal); L73.2 Hidradenitis suppurativa; E11.65 Type 2 diabetes mellitus with hyperglycemia; D64.9 Anemia, unspecified; E78.00 Pure hypercholesterolemia, unspecified; Z98.84 Bariatric surgery status
CPT/HCPCS: 36415; 73502; 74177; 80053; 81001; 83735; 85025; 85651; 87040; 87086; 99284; J2270; J2405; J7030; Q9967